=== PATIENT | female | born 1970 | race Hispanic/Latino ===

== ENCOUNTER → 2017-12-24 | Outpatient (CLI) | payer BC ==
--- NOTE | 2017-12-24 14:34 | Diagnostic Imaging Report ---
PROCEDURE:US RETROPERITONEAL ( KIDNEY ). COMPARISON:None. INDICATIONS:CHRONIC TUBULO-INTERSTITIAL NEPHRITIS,UTI TECHNIQUE: Lee-scale and color sonographic images of the bilateral kidneys and bladder where obtained in transverse and longitudinal planes. FINDINGS: RIGHT KIDNEY: 10.6 cm in length, cortical thickness 1.7 cm. Cysts: Three adjacent exophytic upper pole anechoic lesions with no internal solid component or vascularity are identified. The largest measures 3.6 x 4 x 5.7 cm. 2 smaller lesions measure 2.2 x 1.7 x 3.1 and 3.2 x 2.5 x 2.3 cm. Additionally, there is a parenchymal cyst in the lower pole measuring 1.3 x 0.8 x 1.1 cm. Solid masses: None Stones: 3 mm nonobstructing shadowing calculi are identified in the renal pelvis. Hydronephrosis: None Echogenicity: Normal renal cortical echogenicity. LEFT KIDNEY: 12.6 cm in length, cortical thickness 2.2 cm. Cysts: None Solid masses: None Stones: None Hydronephrosis: None Echogenicity: Normal renal cortical echogenicity. Bladder: Unremarkable. Right and left ureteral jets are identified. CONCLUSION: Simple right renal cysts and nonobstructing right renal calculi. Dictated by: Lj Parker M.D. on 12/24/2017 at 14:38 Electronically approved by: Lj Parker M.D. on 12/24/2017 at 14:38
== END ==
LOC: US 13:09
PROVIDERS: ATTEND Family Medicine
DX: N11.9 Chronic tubulo-interstitial nephritis, unspecified (principal)
CPT/HCPCS: 76770